=== PATIENT | male | born 1995 | race Caucasian/White ===

== ENCOUNTER 2017-12-26 00:06 | Emergency (ER) | payer OTHER ==
[~2017-12-26] VITALS: Ht 177.8 cm; Wt 86.2 kg
[2017-12-26] MEDS ORDERED: HYDROCODONE-AP1 EAC6 PO (00:56)
[2017-12-26 01:23] VITALS: BP 123/67
== END 2017-12-26 01:24 | disposition home or self-care (01) ==
LOC: M.ERS 00:06
DX: S49.81XA Other specified injuries of right shoulder and upper arm, initial encounter (principal); F17.210 Nicotine dependence, cigarettes, uncomplicated; W16.532A Jumping or diving into swimming pool striking wall causing other injury, initial encounter; Y93.11 Activity, swimming; Y92.89 Other specified places as the place of occurrence of the external cause; Y99.8 Other external cause status